=== PATIENT | male | born 2000 | race Two or more races ===

== ENCOUNTER 2022-07-09 14:25 | Emergency (ER) | payer MEDICAID, OTHER ==
[~2022-07-09] VITALS: Ht 170.2 cm; Wt 126.2 kg
[2022-07-09 14:38] VITALS: BP 116/78
[2022-07-09] MEDS ORDERED: KETOROLAC TROMETH 30 MG/ML 1ML VIAL IM ONE (16:00)
[2022-07-09] MEDS ORDERED: LIDO5DIS21 TOP (17:12)
[2022-07-09] MEDS ORDERED: ACET1CAP14 PO (17:12)
== END 2022-07-09 17:29 | disposition home or self-care (01) ==
LOC: ER 14:25
DX: S39.012A Strain of muscle, fascia and tendon of lower back, initial encounter (principal); S16.1XXA Strain of muscle, fascia and tendon at neck level, initial encounter; V43.52XA Car driver injured in collision with other type car in traffic accident, initial encounter; Y93.89 Activity, other specified; Y92.89 Other specified places as the place of occurrence of the external cause; Y99.8 Other external cause status
CPT/HCPCS: 72125; 72131; 96372; 99285; J1885

== ENCOUNTER 2022-12-01 19:42 | Emergency (ER) | payer MEDICAID ==
[~2022-12-01 19:42] MED LIST: ACET1CAP14 PO; LIDO5DIS21 TOP
== END 2022-12-01 20:31 | disposition left against medical advice (07) ==
LOC: ER 19:42
DX: M54.59 Other low back pain (principal); Z53.21 Procedure and treatment not carried out due to patient leaving prior to being seen by health care provider

== ENCOUNTER 2023-02-22 19:54 | Emergency (ER) | payer MEDICAID ==
[~2023-02-22] VITALS: Ht 170.2 cm; Wt 123.5 kg
[2023-02-22 21:01] VITALS: BP 107/76; PULSE 71; RESP 18; TEMP 97.8; O2SAT 98
[2023-02-22] MEDS ORDERED: IBUP-1454 PO (22:00)
[2023-02-22] MEDS ORDERED: PENI500T2 PO (22:00)
== END 2023-02-22 22:20 | disposition home or self-care (01) ==
LOC: ER 19:54
DX: J03.90 Acute tonsillitis, unspecified (principal); Z79.899 Other long term (current) drug therapy